=== PATIENT | female | born 1935 | race Caucasian/White ===

== ENCOUNTER 2018-07-23 08:06 | Day surgery (SDC) | payer OTHER, BC ==
[2018-07-22 14:25] VITALS: BMI 22.1
[2018-07-23 09:44] VITALS: TEMP 97.3
[2018-07-23 11:52] VITALS: BP 168/61; PULSE 82
--- NOTE | 2018-07-26 19:55 | PATH ---
Surgical Pathology Report Patient Name: SOLOMON MARTÍNEZ [facility]. Rec. #: [id number] /Age/Gender: 1935 (Age: 83) / F Account: [id number] Location: U-ENDOSCOPY Taken: 07/23/2018 Received: 07/23/2018 Reported: 07/26/2018 Physicians: Brenda Richardson M.D. Specimen(s) Received A: 2ND PORTION DUODENUM AND BULB B: FUNDIC POLYPS AND BODY C: ANTRUM D: TRANSVERSE COLON E: ANASTOMOSIS Clinical History Weight loss, abdominal pain, history of colonic cancer Postoperative diagnosis: Fundic polyps, head of hernia, colon polyps, diverticulosis, patent anastomosis Final Diagnosis A. DUODENUM, SECOND PORTION AND DUODENAL BULB, BIOPSY: DUODENAL MUCOSA WITH FOCAL MILD CHRONIC DUODENITIS AND PRESERVED VILLOUS ARCHITECTURE. B. STOMACH, FUNDIC POLYPS AND BODY, BIOPSY: FUNDIC GLAND POLYP(S). GASTRIC BODY MUCOSA WITH MILD CHRONIC GASTRITIS. IMMUNOHISTOCHEMICAL STAIN FOR H. PYLORI IS NEGATIVE. C. STOMACH ANTRUM, BIOPSY: GASTRIC ANTRAL MUCOSA WITH MILD CHRONIC GASTRITIS. IMMUNOHISTOCHEMICAL STAIN FOR H. PYLORI IS NEGATIVE. D. TRANSVERSE COLON POLYP, POLYPECTOMY: HYPERPLASTIC POLYP. E. ANASTOMOSIS, BIOPSY: JUNCTIONAL (SMALL BOWEL AND COLONIC) MUCOSA WITH MILD CHRONIC INFLAMMATION CONSISTENT WITH ANASTOMOSIS. Electronically Signed Ela Canela M.D. Gross Description A. Received in formalin, labeled "second portion duodenum and duodenal bulb" are 3 mcintyre, irregular portions of soft tissue measuring 0.3 and 0.5 cm. in greatest dimension. The specimens are submitted in toto in one cassette. B. Received in formalin, labeled "BX body and fundic polyps" are 5 mcintyre, irregular portions of soft tissue ranging in size from 0.1-0.3 cm. in greatest dimension. The specimens are submitted in toto in one cassette. C. Received in formalin, labeled "BX antrum" are 2 mcintyre, irregular portions of soft tissue measuring 0.1 and 0.4 cm. in greatest dimension. The specimens are submitted in toto in one cassette. D. Received in formalin, labeled "transverse colon" is a mcintyre, irregular portion of soft tissue measuring 0.7 cm. in greatest dimension. The base of the specimen is inked in blue. The specimen is bisected and entirely submitted in toto in one cassette. E. Received in formalin, labeled "BX anastomosis" are 2 mcintyre, irregular portions of soft tissue measuring less than 0.1 and 0.2 cm. in greatest dimension. The specimens are submitted in toto in one cassette. MLCarltonZ/07/23/2018 lenny/07/23/2018
== END 2018-07-23 10:54 | disposition home or self-care (01) ==
LOC: JASU-ENDO 08:06
PROVIDERS: ATTEND Internal Medicine Gastroenterology
PROC: 0DB68ZX Excision of Stomach, Via Natural or Artificial Opening Endoscopic, Diagnostic (ICD-10-PCS; 2018-07-23)
PROC: 0DBL8ZX Excision of Transverse Colon, Via Natural or Artificial Opening Endoscopic, Diagnostic (ICD-10-PCS; principal; 2018-07-23 09:00)
DX: Z12.11 Encounter for screening for malignant neoplasm of colon (principal); Z86.010 Personal history of colon polyps; K63.5 Polyp of colon; D12.3 Benign neoplasm of transverse colon; K57.30 Diverticulosis of large intestine without perforation or abscess without bleeding; Z98.0 Intestinal bypass and anastomosis status; K31.7 Polyp of stomach and duodenum; K44.9 Diaphragmatic hernia without obstruction or gangrene; R63.4 Abnormal weight loss
CPT/HCPCS: 88305-TC; 88342-TC

== ENCOUNTER 2021-01-12 17:01 | Emergency (ER) | payer OTHER, BC ==
[2021-01-12 17:18] VITALS: BP 161/86; PULSE 88; TEMP 97.8; BMI 23.7
[2021-01-12 19:55] LABS: BASO % 1.3 % (0-2.0); EOS % 5.6 % (0-4.5); HEMATOCRIT 31.9 % (32.4-45.2); HEMOGLOBIN 10.9 GM/dL (10.7-15.3); LYMPH % 24.9 % (8-40); MCH 31.2 pg (25.7-33.7); MEAN CELL VOLUME 91.7 fl (80-96); MONO % 9.9 % (3.8-10.2); NEUT % 58.3 % (42.8-82.8); PLATELET COUNT 196 10^3/uL (134-434); RBC 3.48 M/mm3 (3.60-5.2); RDW 13.9 % (11.6-15.6); WHITE BLOOD COUNT 6.4 K/mm3 (4.0-10.0)
[2021-01-12 20:09] LABS: EPI CELLS 16 /uL (0-25.1); HYALINE CASTS 0 /uL (0-3.1); URINE APPEARANCE CLEAR; URINE BACTERIA 148 /uL (0-1359); URINE BILIRUBIN NEGATIVE (NEGATIVE); URINE COLOR YELLOW; URINE GLUCOSE (UA) NEGATIVE (NEGATIVE); URINE KETONE NEGATIVE (NEGATIVE); URINE LEUK ESTERASE 1+ (NEGATIVE); URINE NITRITE NEGATIVE (NEGATIVE); URINE PROTEIN NEGATIVE (NEGATIVE); URINE RBC 0 /uL (0-23.9); URINE UROBILINOGEN 0.2 mg/dL (0.2-1.0); URINE WBC 3 /uL (0-25.8)
[2021-01-12 20:15] LABS: CHLORIDE 106 mmol/L (98-107); SODIUM 139 mmol/L (136-145)
[2021-01-12 20:16] LABS: CALCIUM 9.2 mg/dL (8.5-10.1)
[2021-01-12 20:17] LABS: ALBUMIN 3.6 g/dl (3.4-5.0); ANION GAP 7 MMOL/L (8-16); BLOOD UREA NITROGEN 17.2 mg/dL (7-18); CO2 26 mmol/L (21-32); GLUCOSE,RANDOM 106 mg/dL (74-106)
[2021-01-12 20:21] LABS: SGOT/AST 20 U/L (15-37); SGPT/ALT 21 U/L (13-61)
[2021-01-12 20:22] LABS: BILIRUBIN,TOTAL 0.5 mg/dL (0.2-1); TOT PROT 7.4 g/dl (6.4-8.2)
[2021-01-12 20:23] LABS: ALK PHOS 40 U/L (45-117)
[2021-01-12 22:38] LABS: INR 1.11 (0.83-1.09); PROTHROMBIN TIME (PATIENT) 12.5 SEC (9.7-13.0)
[2021-01-12 22:40] LABS: ACTIVATED PTT 28.9 SECONDS (25.2-36.5)
== END 2021-01-13 00:07 ==
LOC: JER 17:01
DX: R19.5 Other fecal abnormalities (principal)
CPT/HCPCS: 36415; 71046-TC-FY; 74177-TC; 80053; 81003; 82272; 82550; 83605; 84484; 85025; 85610; 85730; 86850; 86900; 86901; 87086; 93005; 93010; 99285-25; Q9967